=== PATIENT | male | born 1990 | race Caucasian/White ===

== ENCOUNTER 2020-07-09 05:46 | Emergency (ER) | payer SELFPAY ==
[~2020-07-09] VITALS: Ht 180.3 cm; Wt 82.0 kg
[2020-07-09 05:49] VITALS: BP 135/89
--- NOTE | 2020-07-09 06:00 | NUR ---
pt ambulated to room 16, no acute distress. MD to bedside to eval pt.
[2020-07-09] MEDS ORDERED: CEFTRIAXONE 250 MG ONE (06:08)
[2020-07-09] MEDS ORDERED: AZITHROMYCIN 500 MG TABLET ONE (06:08)
--- NOTE | 2020-07-09 06:13 | NUR ---
orders received for medications and pt medicated per emar. IM shot to left gluteus jazlyn given, and pt tolerated well, states he has nkda. no acute distress and pt with good aeration and oxygenation.
--- NOTE | 2020-07-09 06:23 | NUR ---
f/u and d/c instructions given, and pt v/u. ambulatory, and in no acute distress.
[2020-07-09] MEDS ORDERED: CEFTRIAXONE 250 MG IM ONE (06:30)
[2020-07-09] MEDS ORDERED: AZITHROMYCIN 500 MG TABLET PO ONE (06:30)
== END 2020-07-09 06:24 | disposition home or self-care (01) ==
LOC: ED 06:15
DX: A56.01 Chlamydial cystitis and urethritis (principal)
CPT/HCPCS: 96372; 99283; J0696